=== PATIENT | male | born 1980 | race Caucasian/White ===

== ENCOUNTER 2018-04-05 05:24 | Emergency (ER) | payer OTHER ==
[~2018-04-05] VITALS: Ht 185.4 cm; Wt 95.3 kg
[~2018-04-05 05:24] MED LIST: BENTYL 20 MG TA20 M1 PO; CARAFATE 1 GM TA1 G1 PO; CEFDINIR300 MG; CIPROFLOXACIN500 M1 PO; LISINOPRIL20 MG PO; NOHOMEMEDICATIONS; NORCO 5-325 TA1 EACH PO; PREDNISONE50 MG PO; PRILOSEC40 MG PO; ZPAK PO
[2018-04-05 06:11] VITALS: BP 119/85
== END 2018-04-05 06:22 | disposition home or self-care (01) ==
LOC: M.ERS 05:24
DX: S63.592A Other specified sprain of left wrist, initial encounter (principal); I10 Essential (primary) hypertension; K21.9 Gastro-esophageal reflux disease without esophagitis; X58.XXXA Exposure to other specified factors, initial encounter; Y93.64 Activity, baseball; Y92.89 Other specified places as the place of occurrence of the external cause; Y99.8 Other external cause status